=== PATIENT | male | born 1945 | race Caucasian/White ===

== ENCOUNTER 2016-04-13 06:57 | Emergency (ER) | payer SELFPAY ==
[~2016-04-13] VITALS: Ht 170.2 cm; Wt 69.0 kg
[2016-04-13 06:58] VITALS: Ht 170.2 cm; Wt 69.0 kg
[2016-04-13] MEDS ORDERED: SOD CHLORIDE 0.9% 1,000 ML IV STA (07:08)
[2016-04-13] MEDS ORDERED: morphine 4 MG/ML VIAL IV STA (07:08)
[2016-04-13] MEDS ORDERED: ONDANSETRON 4 MG INJ IV STA (07:08)
[2016-04-13 08:04] LABS: INR 1.01; PROTIME 13.3 Sec (12.2-14.2)
[2016-04-13 08:05] LABS: ALBUMIN 4.4 g/dl (3.3-4.9); POTASSIUM 4.2 mmol/L (3.5-5.1)
[2016-04-13 08:07] LABS: CREATININE 1.45 mg/dl (0.61-1.24)
[2016-04-13 08:08] LABS: ALBUMIN/GLOBULIN RATIO 1.69; BILIRUBIN,INDIRECT 0.3 mg/dl (0-1.1); BILIRUBIN,TOTAL 0.3 mg/dl (0.2-1.3); CALCIUM 9.1 mg/dl (8.4-10.2)
[2016-04-13 08:10] LABS: BASOPHILS % 0.4 % (0.0-2.0); EOSINOPHILS % 0.2 % (0.0-7.0); HEMATOCRIT 37.9 % (42.0-52.0); HEMOGLOBIN 12.5 g/dl (14.0-18.0); LYMPHOCYTES # 0.7 10^3/ul (0.8-2.9); LYMPHOCYTES % 6.8 % (15.0-51.0); MEAN CORPUSCULAR HEMOGLOBIN 25.9 pg (29.0-33.0); MEAN CORPUSCULAR HGB CONC 33.1 g/dl (32.0-37.0); MEAN CORPUSCULAR VOLUME 78.4 fl (82.0-101.0); MEAN PLATELET VOLUME 10.1 fl (7.4-10.4); MONOCYTE # 0.9 10^3/ul (0.3-0.9); NEUTROPHIL # 8.4 10^3/ul (1.6-7.5); NEUTROPHILS % 83.6 % (39.0-77.0); PLATELET COUNT 162 10^3/UL (140-440); RED BLOOD COUNT 4.84 10^6/ul (4.70-6.10); RED CELL DISTRIBUTION WIDTH 13.8 % (11.5-14.5); UNCORRECTED WBC 10.1 10^3/ul (4.8-10.8); WHITE BLOOD COUNT 10.1 10^3/ul (4.8-10.8)
--- NOTE | 2016-04-13 08:11 | RADRPT ---
PROCEDURE: CT Abdomen and pelvis without contrast. CLINICAL INDICATION: Abdominal pain. TECHNIQUE: CT scan of the abdomen and pelvis was performed on a multi-detector high-resolution CT scanner. Contiguous axial images were obtained from the lung bases to the ischial tuberosities wit hout intravenous contrast. Coronal and sagittal reformatted images were also obtained. Images were reviewed on the PACS workstation. One or more of the following dose reduction techniques were used: - Automated exposure control. - Adjustment of the mA and/or kV according to patient size. - Use of iterative reconstruction technique. Exam CTD/vol = 7.46 mGy. Total exam DLP = 436.12 mGy-cm. COMPARISON: None. FINDINGS: Evaluation of the lung bases demonstrates mild bibasilar atelectasis. Abdomen: The liver is normal in size. There is no focal mass or dilatation of the biliary tree. T he gallbladder is not distended. The spleen, pancreas and bilateral adrenal glands are within omer l limits. There is a 5 mm hyperdense lesion within the mid left kidney which could represent a hemo rrhagic/proteinaceous cysts. There is no radiopaque renal or calculus identified. There is moderat e right-sided hydronephrosis with perinephric stranding. There is no retroperitoneal adenopathy. T he abdominal aorta is of normal caliber with mild scattered atherosclerotic calcifications. There is no abnormal bowel wall thickening or distension. There is no bowel obstruction or free air . A normal appendix is identified. There is no diverticulosis or diverticulitis. There is no asci sukhi. Pelvis: The bladder is unremarkable. There is a 3 x 2 mm calculus within the right distal ureter. The prostate and seminal vesicles are within normal limits. There is no significant pelvic adenopa thy or free fluid. Evaluation of the osseous structures demonstrates multiple sclerotic lesions within the bony skeleto n with the largest involving the left posterior L2 vertebral body and pedicle. IMPRESSION: Right distal ureteral 3 x 2 mm calculus with moderate right-sided hydronephrosis. Multiple sclerotic lesions within the bony skeleton suggestive of metastatic disease. Small hyperdense lesion within the mid left kidney could represent a hemorrhagic/proteinaceous cyst. Mild bibasilar atelectasis. Mild vascular calcifications reflective of atherosclerosis. .Zander Damian MD, MD Date Time Electronically viewed and signed by .Zander Damian MD, MD on 04/13/2016 08:11 .T/
[2016-04-13 08:13] LABS: CONDITION 1; LH ANALYZER COMMENTS 1
[2016-04-13] MEDS ORDERED: KETOROLAC 15 MG INJ IV STA (08:18)
[2016-04-13] MEDS ORDERED: METOCLOPRAMIDE 10 MG INJ IV ONE (08:30)
[2016-04-13] MEDS ORDERED: CEPH500C PO (08:46)
[2016-04-13] MEDS ORDERED: IBUP-1542 PO (08:46)
[2016-04-13] MEDS ORDERED: OXYC-279 PO (08:46)
[2016-04-13 08:50] VITALS: BP 139/74; PULSE 66; RESP 18; TEMP 98.9
--- NOTE | 2016-04-13 08:51 | ERD ---
ER Documentation Chief Complaint Date/Time DATE: 04/13/16 TIME: 08:48 Chief Complaint R LOWER ABD PAIN WITH N/V SINCE YESTERDAY HPI 70-year-old man complains of colicky right upper flank pain radiating to the right lower quadrant abdomen. He has also had 2 episodes of clear nonbloody nonbilious emesis. He denies fevers or chills, no diarrhea, no melena or blood per rectum, no chest pain or shortness of breath. Patient denies URI symptoms. ROS All systems reviewed and are negative except as per history of present illness. Medications Home Meds Active Scripts Cephalexin* (Cephalexin*) 500 Mg Capsule, 500 MG PO Q8 for 7 Days, #21 CAP Prov:SONALI VALLE MD 04/13/16 Ibuprofen* (Ibuprofen*) 600 Mg Tablet, 600 MG PO Q8 for PAIN AND/OR INFLAMMATION , #30 TAB Prov:SONALI VALLE MD 04/13/16 Oxycodone HCl/Acetaminophen (Percocet 5-325 mg Tablet) 1 Each Tablet, 1 EACH PO TID for PAIN, #12 TAB Prov:SONALI VALLE MD 04/13/16 Allergies Allergies: Coded Allergies: No Known Allergy (Unverified , 04/13/16) PMhx/Soc History of Surgery: Yes (colon resection,stent placement) Anesthesia Reaction: No Hx Neurological Disorder: No Hx Respiratory Disorders: No Hx Cardiac Disorders: Yes (stent placement) Hx Psychiatric Problems: No Hx Miscellaneous Medical Probl: Yes (sbo) Hx Alcohol Use: No Hx Substance Use: No Hx Tobacco Use: No Smoking Status: Never smoker FmHx Family History: No diabetes Physical Exam Vitals Vital Signs Date Time Temp Pulse Resp B/P Pulse Ox O2 Delivery O2 Flow Rate FiO2 04/13/16 08:50 98.9 66 18 139/74 98 Room Air 04/13/16 06:58 99.9 20 198/88 99 Physical Exam GENERAL: Well-developed, well-nourished, well-hydrated, in no apparent distress , looks nontoxic in appearance HEENT: Moist mucous membranes, pink conjunctiva, no cervical spine tenderness or step-off deformities, no goiter, no jaundice or icterus, extraocular movements intact without pain. No submandibular induration, and no pharyngeal erythema NEURO: Alert and oriented 3, cranial nerves II through XII intact bilaterally, pupils equal round reactive to light, no focal deficits or facial asymmetry, sensation intact distally Strength 5/5 in upper and lower extremities bilaterally CARDIAC: Regular rate and rhythm, no murmurs rubs or gallops LUNGS: Clear bilaterally no wheezing crackles or stridor ABDOMEN: Soft nontender, no guarding, no rigidity, no rebound, no psoas sign no obturator sign. Normoactive bowel sounds SKIN: Warm and dry to touch, no abrasions, contusions, or hematomas, no lacerations, no ecchymosis, no target lesions, and without ulcers EXTREMITIES: No clubbing cyanosis or edema, calves are bilaterally symmetrical, no Homans sign, no popliteal cord sign. Distal pulses equal and bilateral PSYCH: Normal affect without agitation or irritability Result Diagram: 04/13/16 0715 04/13/16 0715 Results 24 hrs Laboratory Tests Test 04/13/16 07:15 04/13/16 08:27 Alanine Aminotransferase (ALT/SGPT) 48IU/L Albumin 4.4g/dl Albumin/Globulin Ratio 1.69 Alkaline Phosphatase 67IU/L Anion Gap 19 Aspartate Amino Transf (AST/SGOT) 32IU/L Basophils # 0.010^3/ul Basophils % 0.4% Blood Morphology Comment Blood Urea Nitrogen 29mg/dl Calcium Level 9.1mg/dl Carbon Dioxide Level 27mmol/L Chloride Level 102mmol/L Creatinine 1.45mg/dl Direct Bilirubin 0.00mg/dl Eosinophils # 0.010^3/ul Eosinophils % 0.2% Globulin 2.60g/dl Glucose Level 124mg/dl Hematocrit 37.9% Hemoglobin 12.5g/dl INR International Normalized Ratio 1.01 Indirect Bilirubin 0.3mg/dl Lipase 112U/L Lymphocytes # 0.710^3/ul Lymphocytes % 6.8% Mean Corpuscular Hemoglobin 25.9pg Mean Corpuscular Hemoglobin Concent 33.1g/dl Mean Corpuscular Volume 78.4fl Mean Platelet Volume 10.1fl Monocytes # 0.910^3/ul Monocytes % 9.0% Neutrophils # 8.410^3/ul Neutrophils % 83.6% Nucleated Red Blood Cells # 0.010^3/ul Nucleated Red Blood Cells % 0.0/100WBC Platelet Count 11280^3/UL Potassium Level 4.2mmol/L Prothrombin Time 13.3Sec Prothrombin Time Ratio 1.0 Red Blood Count 4.8410^6/ul Red Cell Distribution Width 13.8% Sodium Level 144mmol/L Total Bilirubin 0.3mg/dl Total Protein 7.0g/dl White Blood Count 10.110^3/ul Urine Bacteria RARE Urine Bilirubin NEGATIVE Urine Clarity CLEAR Urine Color LT. YELLOW Urine Epithelial Cells RARE Urine Glucose NEGATIVE% Urine Hemoglobin 3+ Urine Ketones NEGATIVE Urine Leukocyte Esterase NEGATIVE Urine Microscopic RBC >50/HPF Urine Microscopic WBC 0-2/HPF Urine Nitrite NEGATIVE Urine Specific [place] 1.015 Urine Total Protein TRACE Urine Urobilinogen 0.2 E.U./dL Urine pH 7.0 Current Medications Medications (Trade) Dose Ordered Sig/Sandor Route PRN Reason Start Time Stop Time Status Last Admin Dose Admin Sodium Chloride (NS) 1,000 ml @ 1,000 mls/hr Q1H STAT IV 04/13/16 07:08 04/13/16 08:07 DC 04/13/16 07:18 Morphine Sulfate (morphine) 4 mg ONCE STAT IV 04/13/16 07:08 04/13/16 07:10 DC 04/13/16 07:19 Ondansetron HCl (Zofran Inj) 4 mg ONCE STAT IV 04/13/16 07:08 04/13/16 07:10 DC 04/13/16 07:18 Ketorolac Tromethamine (Toradol) 15 mg ONCE STAT IV 04/13/16 08:18 04/13/16 08:21 DC 04/13/16 08:25 Metoclopramide HCl (Reglan) 10 mg ONCE ONCE IV 04/13/16 08:30 04/13/16 08:31 DC 04/13/16 08:29 Procedures/MDM IV line was established patient was placed on teletypesetter monitor rhythm strip revealed a sinus rhythm at about 80 bpm with upright P and T waves. Patient was afebrile. CT scan of the abdomen and pelvis during revealed a calculus to the right kidney with hydronephrosis. Please refer to radiologist dictation for full report. I initially treated the patient with 1 L normal saline IV, morphine 4 mg IV, and Zofran 4 mg IV with good effect for continued symptoms I administered Toradol 15 mg IV and Reglan 10 mg IV with good response. CBC was unremarkable, electrolytes revealed dehydration with an elevation in creatinine, BUN creatinine was 29/1.5, liver function tests are normal, troponin was negative. Urine analysis was negative for infection. Patient remains afebrile, vital signs are normal and his pain is resolved. He will be managed as an outpatient. Differential diagnoses considered, included but not limited to acute coronary syndrome, pulmonary embolism, aortic dissection, abdominal aortic aneurysm, sepsis, stroke, meningitis, encephalitis, pneumonia, appendicitis, cholecystitis , bowel obstruction, pyelonephritis, nephrolithiasis, cystitis, as well as metabolic, hematologic, and electrolyte abnormalities. As well as abscess, cellulitis, fractures, and dislocations. Patient feels much better at this time, and vital signs are normal, symptoms have improved. I did give strict instructions to return to the ED if symptoms continue or worsen, patient will otherwise follow-up with primary care physician. Patient understood instructions and agreed to plan. Departure Diagnosis: Primary Impression: Kidney stone Additional Impression: Dehydration Condition: Good Patient Instructions: Kidney Stone W/ Colic SONALI VALLE MD Apr 13, 2016 08:50
[2016-04-13 08:54] LABS: ADD UMIC YES; URINE BILIRUBIN (Dip) NEGATIVE (NEGATIVE); URINE BLOOD (Dip) 3+ (NEGATIVE); URINE COLOR LT. YELLOW (YELLOW); URINE GLUCOSE (Dip) NEGATIVE (NEGATIVE); URINE KETONES (Dip) NEGATIVE (NEGATIVE); URINE LEUKOCYTE ESTERASE (Dip) NEGATIVE (NEGATIVE); URINE NITRITE (Dip) NEGATIVE (NEGATIVE); URINE TOTAL PROTEIN (Dip) TRACE (NEGATIVE); URINE UROBILINOGEN (Dip) 0.2 E.U./dL (0.1-1.0)
[2016-04-13 09:18] LABS: BACTERIA,URINE RARE; URINE RBCS >50 /HPF (0)
== END 2016-04-13 09:02 | disposition home or self-care (01) ==
LOC: E/R 06:57
DX: N20.0 Calculus of kidney (principal); E86.0 Dehydration; R11.10 Vomiting, unspecified; Z95.5 Presence of coronary angioplasty implant and graft
CPT/HCPCS: 74176; 80053; 81001; 83690; 85025; 85610; J1885; J2270; J2405; J2765; J7030; 36415; 81003; 96374; 96375